=== PATIENT | female | born 1955 | race Caucasian/White ===

== ENCOUNTER → 2020-09-26 | Outpatient (CLI) | payer BC, MEDICARE | LOC: MAMO 07-18 10:30 | DX: N64.4 Mastodynia (principal); Z12.31 Encounter for screening mammogram for malignant neoplasm of breast | CPT/HCPCS: 77066; G0279 ==

== ENCOUNTER 2021-01-03 22:28 | Emergency (ER) | payer BC, MEDICARE ==
[2021-01-03 23:41] LABS: RED BLOOD COUNT 4.83 M/UL (4.00-5.10); WHITE BLOOD COUNT 18.4 K/UL (4.5-11.0)
== END 2021-01-04 02:30 ==
LOC: ER1 22:28
PROVIDERS: Emergency Medicine
DX: I71.3 Abdominal aortic aneurysm, ruptured (principal); E87.6 Hypokalemia; D72.829 Elevated white blood cell count, unspecified; R77.8 Other specified abnormalities of plasma proteins; E78.5 Hyperlipidemia, unspecified; I10 Essential (primary) hypertension; F17.200 Nicotine dependence, unspecified, uncomplicated; Z90.49 Acquired absence of other specified parts of digestive tract; Z90.710 Acquired absence of both cervix and uterus
CPT/HCPCS: 71045; 80053; 82550; 82553; 83605; 83690; 83874; 84484; 85025; 93005; 96374; 96375; 96376; 99285; J2270; J2405; Q9967

== ENCOUNTER → 2021-08-26 | Outpatient (CLI) | payer BC, MEDICARE | LOC: ECHO 06-26 13:15 → CT 06-26 15:30 → US 09:03 | DX: R60.0 Localized edema (principal); E04.2 Nontoxic multinodular goiter; I08.2 Rheumatic disorders of both aortic and tricuspid valves; I27.20 Pulmonary hypertension, unspecified | CPT/HCPCS: ECHO; 76536; 93306 ==

== ENCOUNTER → 2021-10-13 | Outpatient (CLI) | payer BC, MEDICARE | END | disposition home or self-care (01) | LOC: US 09:24 | DX: D44.0 Neoplasm of uncertain behavior of thyroid gland (principal) ==